=== PATIENT | male | born 1970 | race Caucasian/White ===

== ENCOUNTER 2018-10-11 06:38 | Emergency (ER) | payer OTHER ==
[~2018-10-11] VITALS: Ht 172.7 cm; Wt 78.0 kg
[2018-10-11 08:23] VITALS: BP 102/65
== END 2018-10-11 08:23 | disposition home or self-care (01) ==
LOC: M.ERS 06:38
DX: T25.521A Corrosion of first degree of right foot, initial encounter (principal); T25.522A Corrosion of first degree of left foot, initial encounter; Z88.0 Allergy status to penicillin; T65.91XA Toxic effect of unspecified substance, accidental (unintentional), initial encounter; Y92.89 Other specified places as the place of occurrence of the external cause